=== PATIENT | male | born 1990 | race African-American/Black ===

== ENCOUNTER 2020-03-14 07:48 | Emergency (ER) | payer OTHER ==
[~2020-03-14] VITALS: Ht 180.3 cm; Wt 114.0 kg
[2020-03-14] MEDS ORDERED: IBUPROFEN 600MG TABLET PO ONE (08:45)
[2020-03-14 08:57] VITALS: BP 156/80
== END 2020-03-14 09:06 | disposition home or self-care (01) ==
LOC: ER 07:48 → EDBD 07:48 → ER 09:06
DX: S46.912A Strain of unspecified muscle, fascia and tendon at shoulder and upper arm level, left arm, initial encounter (principal); V43.52XA Car driver injured in collision with other type car in traffic accident, initial encounter; Y93.89 Activity, other specified; Y92.488 Other paved roadways as the place of occurrence of the external cause
CPT/HCPCS: 93005; 99283